=== PATIENT | male | born 2000 | race Caucasian/White ===

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

== ENCOUNTER 2019-01-06 00:47 | Emergency (ER) | payer OTHER ==
--- NOTE | 2019-01-06 01:00 | ER Report ---
History and Physical Time Seen By MD: 01:00 HPI/NIK CHIEF COMPLAINT: chest pain HISTORY OF PRESENT ILLNESS: This is a 18 year old male. He describes pain on the central chest and to the left side. Has been on and off for several weeks now. Unsure how started. Worsens with deep breaths, pressure on the chest, moving, lifting, twisting. Seems to improve, then worsen. Steady worsening over the last few weeks, worsened tonight. He will wake at night at times, gasping for breath with the pain. Denies heart palpitations. Denies nausea or vomiting. Does have some reflux symptoms. Denies stress, but his parents are here and they feel that his symptoms do increase during times of stress, specifically related to a relationship with a woman in [place] that they do not feel is a healthy relationship. The patient denies having any stress with this and states that it does not affect his pain. He does have a history of anxiety and depression, and is currently trying to wean off his medicine, taking it every other day at this time. Allergies: Coded Allergies: No Known Drug Allergies (Unverified , 01/06/19) Home Meds Active Scripts Ketorolac Tromethamine (KETOROLAC TROMETHAMINE) 10 Mg Tab, 10 MG PO Q6H PRN for PAIN, #12 TAB 0 Refills Prov:OCTAVIA STREETER MD 01/06/19 Reported Medications Sertraline Hcl (SERTRALINE HCL) 50 Mg Tablet, 1 TAB PO QDAY, TAB 01/06/19 Discontinued Reported Medications [none] No Conflict Check 09/26/13 Reviewed Nurses Notes: Yes Hx Smoking: No Constitutional Vital Sign - Last 24 Hours 01/06/19 01/06/19 01/06/19 01/06/19 00:50 01:00 01:02 01:05 Temp 98.1 Pulse 78 83 Resp 16 B/P (MAP) 148/106 (120) 149/105 (120) 148/106 Pulse Ox 92 O2 Delivery Room Air 01/06/19 01/06/19 01/06/19 01/06/19 01:17 01:30 01:47 02:00 Pulse 86 92 Resp 10 14 B/P (MAP) 138/97 (111) 147/100 (116) Pulse Ox 91 94 01/06/19 01/06/19 01/06/19 01/06/19 02:02 02:30 02:32 02:37 Pulse 98 90 94 Resp 15 16 11 B/P (MAP) 142/130 (134) Pulse Ox 92 94 92 01/06/19 01/06/19 01/06/19 01/06/19 03:00 03:07 03:22 03:27 Pulse 84 84 90 Resp 14 23 26 B/P (MAP) 137/90 (106) Pulse Ox 92 93 94 01/06/19 01/06/19 01/06/19 01/06/19 03:30 03:42 03:57 04:00 Pulse 101 93 Resp 16 27 B/P (MAP) 144/91 (108) 147/93 (111) Pulse Ox 93 92 01/06/19 04:12 Pulse 91 Resp 24 Pulse Ox 92 Physical Exam General Appearance: The patient is alert. Acute distress due to his chest pain. Anxiety. Eyes: Pupils are equal, round. No pallor, injection or icterus. ENT: Mucous membranes are moist. Normal oral mucosa. Posterior oropharynx is normal. Respiratory: Lungs are clear to auscultation. Cardiovascular: Regular rate and rhythm. No murmurs, gallops or rubs. Normal capillary refill. No edema. Gastrointestinal: Abdomen is soft and non tender. Nondistended. Normal active bowel sounds. Neurological: Alert and oriented x3. No focal neurologic deficits Skin: Warm and dry. No rashes. Musculoskeletal: Extremities are nontender. Does have significant pain with palpation of the chest wall and ribs on the left, and this is the same pain he is feeling. No tenderness in palpation of the cervical, thoracic and lumbar spine. DIFFERENTIAL DIAGNOSIS: After history and physical exam, differential diagnosis was considered for patient with chest pain, appears chest wall/musculockeletal. Medical Decision Making Data Points Result Diagram: 01/06/19 0200 01/06/19 0200 Laboratory Hematology Test 01/06/19 02:00 Red Blood Count 5.48 M/uL (4.00-5.60) Mean Corpuscular Volume 88.1 fL (80.0-96.0) Mean Corpuscular Hemoglobin 29.9 pg (26.0-33.0) Mean Corpuscular Hemoglobin Concent 33.9 g/dL (32.0-36.0) Red Cell Distribution Width 13.9 % (11.5-14.5) Mean Platelet Volume 8.1 fL (7.2-11.1) Neutrophils (%) (Auto) 61.7 % (39.4-72.5) Lymphocytes (%) (Auto) 26.6 % (17.6-49.6) Monocytes (%) (Auto) 10.2 % (4.1-12.4) Eosinophils (%) (Auto) 0.8 % (0.4-6.7) Basophils (%) (Auto) 0.7 % (0.3-1.4) Nucleated RBC Relative Count (auto) 0.1 /100WBC Neutrophils # (Auto) 3.8 K/uL (2.0-7.4) Lymphocytes # (Auto) 1.6 K/uL (1.3-3.6) Monocytes # (Auto) 0.6 K/uL (0.3-1.0) Eosinophils # (Auto) 0.0 K/uL (0.0-0.5) Basophils # (Auto) 0.0 K/uL (0.0-0.1) Nucleated RBC Absolute Count (auto) 0.00 K/uL Erythrocyte Sedimentation Rate 3 mm/HOUR (0-15) Sodium Level 140 mmol/L (137-145) Potassium Level 3.3 mmol/L (3.5-5.0) Chloride Level 104 mmol/L (98-107) Carbon Dioxide Level 25 mmol/L (22-30) Blood Urea Nitrogen 9 mg/dl (9-21) Creatinine 0.90 mg/dl (0.66-1.25) Glomerular Filtration Rate Calc > 60.0 Random Glucose 104 mg/dl (75-110) Calcium Level 9.9 mg/dl (8.4-10.2) Total Bilirubin 0.4 mg/dl (0.2-1.3) Aspartate Amino Transf (AST/SGOT) 37 U/L (0-35) Alanine Aminotransferase (ALT/SGPT) 65 U/L (0-56) Alkaline Phosphatase 98 U/L (0-126) Total Protein 8.2 g/dl (6.3-8.2) Albumin 4.9 g/dl (3.5-5.0) Chemistry Test 01/06/19 02:00 White Blood Count 6.1 k/uL (4.5-11.0) Red Blood Count 5.48 M/uL (4.00-5.60) Hemoglobin 16.4 g/dL (14.0-18.0) Hematocrit 48.3 % (42.0-52.0) Mean Corpuscular Volume 88.1 fL (80.0-96.0) Mean Corpuscular Hemoglobin 29.9 pg (26.0-33.0) Mean Corpuscular Hemoglobin Concent 33.9 g/dL (32.0-36.0) Red Cell Distribution Width 13.9 % (11.5-14.5) Platelet Count 291 K/uL (150-450) Mean Platelet Volume 8.1 fL (7.2-11.1) Neutrophils (%) (Auto) 61.7 % (39.4-72.5) Lymphocytes (%) (Auto) 26.6 % (17.6-49.6) Monocytes (%) (Auto) 10.2 % (4.1-12.4) Eosinophils (%) (Auto) 0.8 % (0.4-6.7) Basophils (%) (Auto) 0.7 % (0.3-1.4) Nucleated RBC Relative Count (auto) 0.1 /100WBC Neutrophils # (Auto) 3.8 K/uL (2.0-7.4) Lymphocytes # (Auto) 1.6 K/uL (1.3-3.6) Monocytes # (Auto) 0.6 K/uL (0.3-1.0) Eosinophils # (Auto) 0.0 K/uL (0.0-0.5) Basophils # (Auto) 0.0 K/uL (0.0-0.1) Nucleated RBC Absolute Count (auto) 0.00 K/uL Erythrocyte Sedimentation Rate 3 mm/HOUR (0-15) Glomerular Filtration Rate Calc > 60.0 Calcium Level 9.9 mg/dl (8.4-10.2) Total Bilirubin 0.4 mg/dl (0.2-1.3) Aspartate Amino Transf (AST/SGOT) 37 U/L (0-35) Alanine Aminotransferase (ALT/SGPT) 65 U/L (0-56) Alkaline Phosphatase 98 U/L (0-126) Total Protein 8.2 g/dl (6.3-8.2) Albumin 4.9 g/dl (3.5-5.0) EKG/Imaging Imaging Chest and left ribs: Indication: Persistent chest wall pain. Technique: Frontal and lateral views of the chest and 3 views of the left ribs were obtained. Comparison: None available. Skeletal and soft tissue structures: There is no evidence of fracture, displacement, or other acute skeletal deformity. There is uniform mineralization of the skeletal structures. No focal soft tissue deformity is identified. Heart and mediastinum: Within normal limits. Lung cruz: Well-expanded and clear. No focal or diffuse opacities. Pleural spaces: No evidence of effusion, pleural thickening, or pneumothorax. Impression: No acute deformity. Report Dictated By: Arcadio Hill MD at 01/06/2019 2:48 AM ED Course/Re-evaluation ED Course Gave Toradol, helped the pain. Labs and imaging negative. Discussed these with the patient and parents. Parents want to know what to do about the stress and could this be affecting the pain. Does not appear to be the cause, but can affect the pain, making it worse at times. I do not think that this is due to any withdrawal symptoms from medications. Recommend anti-inflammatory, rest, and follow-up with Dr. Combs, primary care, for further evaluation and treatm ent. Discussion with him regarding stress and anxiety recommended as well. Decision to Disposition Date: January 06, 2019 Decision to Disposition Time: 04:11 Depart Departure Latest Vital Signs Vital Signs Date Time Temp Pulse Resp B/P (MAP) Pulse Ox O2 Delivery O2 Flow Rate FiO2 01/06/19 04:12 91 24 92 01/06/19 04:00 147/93 (111) 01/06/19 01:05 98.1 Room Air Impression: Primary Impression: Chest wall pain Condition: Improved Disposition: HOME OR SELF-CARE New Scripts Ketorolac Tromethamine (KETOROLAC TROMETHAMINE) 10 Mg Tab 10 MG PO Q6H PRN for PAIN, #12 TAB 0 Refills Prov: OCTAVIA STREETER MD 01/06/19 Patient Instructions: Chest Wall Pain (ED) Additional Instructions: Take Toradol 10mg, one every 6hours for the next 3 days. Increase fluid intake. No heavy lifting or other activities that make the pain worse. Make a follow-up visit with Dr. Combs for this coming week for re- evaluation. OCTAVIA STREETER MD January 06, 2019 01:00
[2019-01-06] MEDS ORDERED: SERT-184 PO (01:10)
[2019-01-06 02:10] LABS: PLATELET COUNT, AUTOMATED 291 K/uL (150-450)
[2019-01-06] MEDS ORDERED: KETOROLAC TROM 10MG TAB PO ONE (02:30)
--- NOTE | 2019-01-06 03:21 | RADIOLOGY IMAGING REPORT ---
FACILITY: [facility] PATIENT NAME: Hitesh Eugene : 2000 MR: [id number] V: [id number] EXAM DATE: ORDERING PHYSICIAN: OCTAVIA STREETER TECHNOLOGIST: [facility] Patient: Hitesh Eugene : 2000 Visit/Account:[id number] Date of Sevice: 01/06/2019 Chest and left ribs: Indication: Persistent chest wall pain. Technique: Frontal and lateral views of the chest and 3 views of the left ribs were obtained. Comparison: None available. Skeletal and soft tissue structures: There is no evidence of fracture, displacement, or other acute s keletal deformity. There is uniform mineralization of the skeletal structures. No focal soft tissue d eformity is identified. Heart and mediastinum: Within normal limits. Lung cruz: Well-expanded and clear. No focal or diffuse opacities. Pleural spaces: No evidence of effusion, pleural thickening, or pneumothorax. Impression: No acute deformity. Report Dictated By: Arcadio Hill MD at 01/06/2019 2:48 AM Report E-Signed By: Arcadio Hill MD at 01/06/2019 2:52 AM WSN:[id number]
--- NOTE | 2019-01-06 03:21 | RADIOLOGY IMAGING REPORT ---
FACILITY: [facility] PATIENT NAME: Hitesh Eugene : 2000 MR: [id number] V: [id number] EXAM DATE: ORDERING PHYSICIAN: OCTAVIA STREETER TECHNOLOGIST: Location: [facility] Patient: Hitesh Eugene : 2000 Visit/Account:[id number] Date of Sevice: 01/06/2019 Chest and left ribs: Indication: Persistent chest wall pain. Technique: Frontal and lateral views of the chest and 3 views of the left ribs were obtained. Comparison: None available. Skeletal and soft tissue structures: There is no evidence of fracture, displacement, or other acute s keletal deformity. There is uniform mineralization of the skeletal structures. No focal soft tissue d eformity is identified. Heart and mediastinum: Within normal limits. Lung cruz: Well-expanded and clear. No focal or diffuse opacities. Pleural spaces: No evidence of effusion, pleural thickening, or pneumothorax. Impression: No acute deformity. Report Dictated By: Arcadio Hill MD at 01/06/2019 2:48 AM Report E-Signed By: Arcadio Hill MD at 01/06/2019 2:52 AM WSN:[id number]
[2019-01-06 04:00] VITALS: BP 147/93
[2019-01-06] MEDS ORDERED: KETOROLAC TROM 10 MG TAB TH PO ONE (04:10)
[2019-01-06] MEDS ORDERED: KET10 PO (04:12)
== END 2019-01-06 04:24 | disposition home or self-care (01) ==
LOC: ER 01:01
DX: R07.89 Other chest pain (principal)
CPT/HCPCS: 36415; 71046; 71100; 82040; 82247; 82310; 82374; 82435; 82565; 82947; 84075; 84132; 84155; 84295; 84450; 84460; 84520; 85025; 85651; 99284

== ENCOUNTER → 2019-01-16 | Outpatient (CLI) | payer OTHER ==
[~2019-01-16] MED LIST: KET10 PO; SERT-181 PO; SERT-184 PO
== END ==
LOC: LAB 09:26
PROVIDERS: ATTEND Internal Medicine
DX: R07.89 Other chest pain (principal); F41.9 Anxiety disorder, unspecified; R94.5 Abnormal results of liver function studies; G47.9 Sleep disorder, unspecified
CPT/HCPCS: 36415; 80074; 81256; 82040; 82247; 82310; 82374; 82435; 82565; 82728; 82947; 83540; 83550; 84075; 84132; 84155; 84295; 84443; 84450; 84460; 84520; 86038